=== PATIENT | male | born 1965 | race Caucasian/White ===

== ENCOUNTER 2022-11-25 05:10 | Emergency (ER) | payer MEDICAID ==
[~2022-11-25] VITALS: Ht 182.9 cm; Wt 90.9 kg
[2022-11-25 06:36] VITALS: BP 132/104
[2022-11-25] MEDS ORDERED: ketorolac trometh inj. 60 MG/2 ML VIAL IM ONE (07:10)
[2022-11-25] MEDS ORDERED: TRAM1TAB7 PO (07:12)
[2022-11-25] MEDS ORDERED: IBUP-1986 PO (07:12)
== END 2022-11-25 07:57 | disposition home or self-care (01) ==
LOC: ER 05:11
DX: M25.512 Pain in left shoulder (principal); M54.9 Dorsalgia, unspecified; M62.838 Other muscle spasm; F17.200 Nicotine dependence, unspecified, uncomplicated; Z79.899 Other long term (current) drug therapy
CPT/HCPCS: 96372; 99283; J1885

== ENCOUNTER 2024-01-12 09:51 | Emergency (ER) | payer MEDICAID, OTHER ==
[~2024-01-12] VITALS: Ht 182.9 cm; Wt 91.0 kg
[~2024-01-12 09:51] MED LIST: IBUP-1986 PO
[2024-01-12 09:52] VITALS: BP 182/133; PULSE 88; O2SAT 96
[2024-01-12] MEDS ORDERED: NAPR-56 PO (10:36)
[2024-01-12 10:43] VITALS: RESP 17; TEMP 98
== END 2024-01-12 10:46 | disposition home or self-care (01) ==
LOC: ER 09:51
DX: M25.512 Pain in left shoulder (principal); Z79.1 Long term (current) use of non-steroidal anti-inflammatories (NSAID); Z79.899 Other long term (current) drug therapy
CPT/HCPCS: 73030; 99283